=== PATIENT | male | born 1995 | race Caucasian/White ===

== ENCOUNTER 2017-03-23 19:14 | Emergency (ER) | payer BC ==
--- NOTE | 2017-03-23 19:34 | EDPHY ---
H & P Time Seen by Provider: 03/23/17 19:28 HPI/ROS: CHIEF COMPLAINT: Chin laceration HISTORY OF PRESENT ILLNESS: This patient is a normally healthy 21 year old male presenting today with a laceration to his chin sustained this evening while playing a drinking game, diving, and striking his chin on a table. He reports active bleeding at the site of his laceration prompting him to present to the ED for sutures. He denies headache, neck pain, spine tenderness, or loss of consciousness. He has no additional injuries. ROS: No numbness, weakness, excessive bleeding, syncopal episode, other injury. Past Medical/Surgical History: Denies. Social History: [employer] Student. Originally from [place]. Friend at bedside. Smoking Status: Current some day smoker Physical Exam: Alert and oriented x3, mildly intoxicated, no acute distress Head: 2 cm linear laceration to chin Neck: Nontender, normal range of motion. Extremities: Nontender Skin: Warm and dry, no rash. Neuro: Motor and sensory intact, no slurred speech Vascular: Capillary refill brisk distally Constitutional: Initial Vital Signs Temperature (C) 36.8 C 03/23/17 19:17 Heart Rate 84 03/23/17 19:17 Respiratory Rate 16 03/23/17 19:17 Blood Pressure 150/91 H 03/23/17 19:17 O2 Sat (%) 95 03/23/17 19:17 O2 Delivery Mode Room Air Allergies/Adverse Reactions: nickel Allergy (Intermediate, Verified 03/23/17 19:16) Rash Medical Decision Making Procedures: Procedure: Laceration repair. Verbal consent was obtained from the patient. The linear 2cm laceration on the chin was anesthetized using lidocaine and epinephrine. The wound was cleaned with standard ED protocol, draped and explored to its base with a gloved finger. There were no deep structures involved. The wound was repaired in single layer technique with 6-0 Prolene. The wound repair was simple. The procedure was performed by myself, Dr. Crow. ED Course/Re-evaluation: This patient is a 21 year old male presenting today with a 2cm linear laceration to his chin sustained following a fall. He denies headache or neck pain. His neck is supple with full ROM without pain. Plan to proceed with laceration repair. Laceration repaired by myself (see procedure note). He will be discharged home in good condition with instructions to follow up for suture removal in 5 days. Return precautions discussed. He is comfortable with this plan. Departure - Departure Disposition: Home, Routine, Self-Care Clinical Impression: Laceration Facial laceration Qualifiers: Encounter type: initial encounter Qualified Code(s): S01.81XA - Laceration without foreign body of other part of head, initial encounter Condition: Good Instructions: Facial Laceration (ED) Additional Instructions: 1. Take 600mg Ibuprofen every 6 hours as needed for pain. 2. Return to the Emergency Department in 5 days for suture removal. 3. Return to the ED for severe redness or swelling, discharge from wound, fever , or other worsening of condition. Referrals: [facility],. [Clinic] - As per Instructions Report Scribed for: Sharon Crow Report Scribed by: Natalia Toussaint Date of Report: 03/23/17 Time of Report: 19:41 Physician Review and Approval Statement: 03/23/17 19:42 Portions of this note were transcribed by a faculty i on call medical assistant. I personally performed a history, physical exam, medical decision making, and confirmed accuracy of information the transcribed note.
[2017-03-23 20:33] VITALS: BP 122/76; PULSE 68; RESP 15; TEMP 98.8; O2SAT 96
== END 2017-03-23 20:32 | disposition home or self-care (01) ==
PROC: 0HQ1XZZ Repair Face Skin, External Approach (ICD-10-PCS; principal; 2017-03-23)
DX: S01.81XA Laceration without foreign body of other part of head, initial encounter (principal); F17.200 Nicotine dependence, unspecified, uncomplicated; W22.8XXA Striking against or struck by other objects, initial encounter; Y99.8 Other external cause status; Y93.12 Activity, springboard and platform diving